=== PATIENT | male | born 1960 | race Caucasian/White ===

== ENCOUNTER → 2018-04-28 11:44 | Outpatient (CLI) | payer OTHER, SELFPAY ==
[2018-04-28 12:56] LABS: Cholesterol 181 mg/dL (200); High Density Lipoprotein 67 mg/dL; Triglycerides 63 mg/dL; Very Low Density Lipoprotein 13 mg/dL (5-40)
[2018-04-28 13:56] LABS: PSA,Total - Annual Screen 0.35 ng/mL (0.00-4.00)
== END ==
PROVIDERS: Visit Provider Family Medicine
DX: Z12.5 Encounter for screening for malignant neoplasm of prostate (principal); E78.5 Hyperlipidemia, unspecified
CPT/HCPCS: 36415; 80053; 80061; 84153; G0103